=== PATIENT | male | born 1955 | race Hispanic/Latino ===

== ENCOUNTER 2022-03-20 15:13 | Outpatient (CLI) | payer MEDICARE, MEDICAID ==
[2022-03-20 17:35] LABS: Hemoglobin 8.3 g/dL (13.5-17.5); Mean Corpuscular Hemoglobin 28.8 pg (27.0-33.0); Mean Corpuscular Volume 89.9 fl (81.2-95.1); Mean Platelet Volume 9.9 fl (7.4-10.4); Platelet Count 404 10x3/uL (150-450); RBC Distribution Width 16.2 % (11.5-14.5); Red Blood Cell (RBC) Count 2.88 10x6/uL (4.32-5.72); White Blood Cell (WBC) Count 27.7 10x3/uL (3.5-10.5)
[2022-03-20 17:42] LABS: Anion Gap 16 mmol/L (10-20); BUN (Urea Nitrogen) 14 mg/dL (8.4-25.7); Calc. Creatinine Clearance 0 mL/min (70-130); Carbon Dioxide 26 mmol/L (23-31); Chloride 97 mmol/L (98-107); Estimated GFR 103; Glucose 193 mg/dL (80-115); Sodium 135 mmol/L (136-145)
[2022-03-20 18:05] LABS: Calcium 13.4 mg/dL (7.8-10.44)
== END 2022-03-20 15:14 | disposition home or self-care (01) ==
LOC: CSHLAB 15:13
PROVIDERS: ATTEND Surgery
DX: Z01.812 Encounter for preprocedural laboratory examination (principal); Z20.822 Contact with and (suspected) exposure to COVID-19; C16.9 Malignant neoplasm of stomach, unspecified
CPT/HCPCS: 80048; 85027; 87811

== ENCOUNTER 2022-03-21 19:14 | Inpatient (IN) | payer MEDICARE, MEDICAID ==
[2022-03-21 19:52] LABS: Hemoglobin 8.1 g/dL (13.5-17.5); Mean Corpuscular HGB CONC 30.9 g/dL (32.0-36.0); Mean Corpuscular Volume 90.7 fl (81.2-95.1); Mean Platelet Volume 9.4 fl (7.4-10.4); Platelet Count 389 10x3/uL (150-450); RBC Distribution Width 15.9 % (11.5-14.5); Red Blood Cell (RBC) Count 2.89 10x6/uL (4.32-5.72); White Blood Cell (WBC) Count 24.7 10x3/uL (3.5-10.5)
[2022-03-21 19:53] LABS: MDiff Complete? YES
[2022-03-21 19:58] LABS: ALT (SGPT) 13 U/L (8-55); AST (SGOT) 22 U/L (5-34); Albumin 3.2 g/dL (3.4-4.8); Alkaline Phosphatase 84 U/L (40-110); Anion Gap 11 mmol/L (10-20); BUN (Urea Nitrogen) 20 mg/dL (8.4-25.7); Bilirubin, Total 0.5 mg/dL (0.2-1.2); Calc. Creatinine Clearance 0 mL/min (70-130); Carbon Dioxide 28 mmol/L (23-31); Chloride 96 mmol/L (98-107); Estimated GFR 102; Globulin 3.3 g/dL (2.4-3.5); Glucose 219 mg/dL (80-115); Potassium 4.4 mmol/L (3.5-5.1); Protein, Total 6.5 g/dL (5.8-8.1); Sodium 131 mmol/L (136-145)
[2022-03-21 20:01] LABS: Calcium 13.8 mg/dL (7.8-10.44)
[2022-03-21] MEDS ORDERED: Piperacillin/Tazobactam 3.375 GM VIAL ONE (20:09)
[2022-03-21 20:17] LABS: Band 5 % (5-11); Eosinophils 1 % (0-10); Lymphocytes 14 % (21-51); Monocytes 7 % (0-10); Neutrophil 73 % (42-75)
[2022-03-21 20:17] LABS: Bilirubin Neg (Negative); Blood, Urine Negative (Negative); Clarity Clear (Clear); Glucose, Urine (Dipstick) Normal (Negative); Ketone, Urine 15 mg/dL (Negative); Leukocyte Negative (Negative); Nitrite Negative (Negative); Protein, Urine (Dipstick) Negative (Neg-Trace); Specific Gravity, Urine 1.025 (1.002-1.036); Urobilinogen Normal mg/dL (Less than 2)
[2022-03-21 20:18] LABS: Anisocytosis SLIGHT = 6-15 cells (100X) (0-5/hpf); Platelet Morphology Comment Appears Adequate
[2022-03-21 20:56] LABS: SARS-CoV-2 NAA Rapid Test Not Detected (NotDetected)
[2022-03-21] MEDS ORDERED: Dextrose 5% in Water 1,000 ML IV PRN (21:03)
[2022-03-21] MEDS ORDERED: Senokot S 8.6-50 MG TAB PO PRN (21:03)
[2022-03-21] MEDS ORDERED: HumaLOG 300 UNITS/3 ML VIAL SC PRN (21:03)
[2022-03-21] MEDS ORDERED: Acetaminophen 325 MG TAB PO PRN (21:03)
[2022-03-21] MEDS ORDERED: Ondansetron PF 4 MG/2 ML Vial IVP PRN (21:03)
[2022-03-21] MEDS ORDERED: Dextrose 50% Abboject 50 ML SYRINGE SLOW IVP PRN (21:03)
[2022-03-21] MEDS ORDERED: Guaifenesin DM 100-10/5 ML UDCUP PO PRN (21:03)
[2022-03-21] MEDS ORDERED: HYDROcodone/Acetaminophen 5/325 mg Tablet PO PRN (21:03)
[2022-03-21] MEDS ORDERED: Calcium Carbonate 500 MG ChewTAB PO PRN (21:03)
[2022-03-21] MEDS ORDERED: Pantoprazole 40 MG VIAL IVP SCH (21:15)
[2022-03-21] MEDS ORDERED: Lactated Ringer's 500 ML IV SCH (21:15)
[2022-03-21] MEDS ORDERED: Zoledronic Acid 4 MG in Sodium Chloride 0.9% 100 ML IVPB SCH (22:15)
[2022-03-21] MEDS ORDERED: Calcitonin,Synthetic 200 UNITS/ML MDV SC SCH (23:00)
[2022-03-22] MEDS: Lactated Ringer's 1,000 ML IV SCH ×2 (00:41→04:32)
[2022-03-22] MEDS ORDERED: HYDROcodone/Acetaminophen 5/325 mg Tablet ONE (02:40)
[2022-03-22] MEDS ORDERED: Metoprolol Tartrate 25 MG TAB ONE (04:30)
[2022-03-22 05:26] LABS: INR-International Normal Ratio 1.1; PTT 24.7 sec (22.0-33.0); Prothrombin Time 11.5 sec (9.5-12.1)
[2022-03-22 05:31] LABS: MDiff Complete? YES
[2022-03-22 05:36] LABS: Anion Gap 13 mmol/L (10-20); BUN (Urea Nitrogen) 13 mg/dL (8.4-25.7); Calc. Creatinine Clearance 0 mL/min (70-130); Calcium 10.6 mg/dL (7.8-10.44); Carbon Dioxide 24 mmol/L (23-31); Chloride 101 mmol/L (98-107); Estimated GFR 109; Glucose 230 mg/dL (80-115); Potassium 3.6 mmol/L (3.5-5.1); Sodium 134 mmol/L (136-145)
[2022-03-22] MEDS ORDERED: Lactated Ringer's 1,000 ML IV SCH (05:38)
[2022-03-22 05:44] LABS: Hemoglobin 6.5 g/dL (13.5-17.5); Mean Corpuscular HGB CONC 31.6 g/dL (32.0-36.0); Mean Corpuscular Hemoglobin 28.5 pg (27.0-33.0); Mean Corpuscular Volume 90.4 fl (81.2-95.1); Mean Platelet Volume 9.3 fl (7.4-10.4); Platelet Count 316 10x3/uL (150-450); RBC Distribution Width 15.9 % (11.5-14.5); Red Blood Cell (RBC) Count 2.28 10x6/uL (4.32-5.72); White Blood Cell (WBC) Count 22.2 10x3/uL (3.5-10.5)
[2022-03-22 06:21] LABS: Band 1 % (5-11); Lymphocytes 5 % (21-51); Monocytes 8 % (0-10); Neutrophil 86 % (42-75)
[2022-03-22 06:22] LABS: Platelet Morphology Comment Appears Adequate
[2022-03-22 06:23] LABS: RBC Morphology Normal
[2022-03-22] MEDS ORDERED: PROPOFOL 20 ML ONE (06:36)
[2022-03-22] MEDS ORDERED: Fentanyl 100 MCG/2 ML VIAL ONE (06:36)
[2022-03-22] MEDS ORDERED: CEFAZOLIN 2 GM VIAL ONE (07:26)
[2022-03-22] MEDS ORDERED: PHENYLEPHRINE-NS 100 MCG/ML 10 ML SYRINGE ONE ×2 (07:45→08:00)
[2022-03-22] MEDS ORDERED: Ondansetron PF 4 MG/2 ML Vial ONE (07:58)
[2022-03-22] MEDS ORDERED: HYDROcodone/Acetaminophen 5/325 mg Tablet PO PRN ×2 (08:17)
[2022-03-22] MEDS ORDERED: Pantoprazole 40 MG VIAL IVP SCH (09:00)
[2022-03-22] MEDS ORDERED: Metoprolol Tartrate 25 MG TAB PO SCH (09:00)
[2022-03-22] MEDS ORDERED: Cefepime 1 GM in Sodium Chloride 0.9% 100 ML IVPB SCH (09:00)
[2022-03-22 09:30] LABS: Hemoglobin 6.7 g/dL (13.5-17.5)
[2022-03-22 09:58] LABS: Anion Gap 12 mmol/L (10-20); BUN (Urea Nitrogen) 11 mg/dL (8.4-25.7); Calc. Creatinine Clearance 0 mL/min (70-130); Calcium 10.1 mg/dL (7.8-10.44); Carbon Dioxide 25 mmol/L (23-31); Chloride 102 mmol/L (98-107); Estimated GFR 109; Glucose 222 mg/dL (80-115); Potassium 3.6 mmol/L (3.5-5.1); Sodium 135 mmol/L (136-145)
[2022-03-22] MEDS ORDERED: Latanoprost 0.005% Ophth Soln 2.5 ml Bottle EA EYE SCH (21:00)
== END 2022-03-22 10:40 | disposition home or self-care (01) | DRG 357 ==
LOC: CSHERS 19:14 → CSHERHOLD 21:01
PROVIDERS: ADMIT Student in an Organized Health Care Education/Training Program; ATTEND Physician Assistant Medical
PROC: 0JH60WZ Insertion of Totally Implantable Vascular Access Device into Chest Subcutaneous Tissue and Fascia, Open Approach (ICD-10-PCS; principal; 2022-03-22)
PROC: 02HV33Z Insertion of Infusion Device into Superior Vena Cava, Percutaneous Approach (ICD-10-PCS; 2022-03-22)
PROC: B5181ZA Fluoroscopy of Superior Vena Cava using Low Osmolar Contrast, Guidance (ICD-10-PCS; 2022-03-22)
PROC: 0JH63XZ Insertion of Tunneled Vascular Access Device into Chest Subcutaneous Tissue and Fascia, Percutaneous Approach (ICD-10-PCS; 2022-03-22)
DX: C16.9 Malignant neoplasm of stomach, unspecified (principal); R65.10 Systemic inflammatory response syndrome (SIRS) of non-infectious origin without acute organ dysfunction; E83.52 Hypercalcemia; E78.5 Hyperlipidemia, unspecified; I10 Essential (primary) hypertension; E11.9 Type 2 diabetes mellitus without complications; I48.0 Paroxysmal atrial fibrillation; Z96.653 Presence of artificial knee joint, bilateral; D50.0 Iron deficiency anemia secondary to blood loss (chronic); E11.65 Type 2 diabetes mellitus with hyperglycemia; Z20.822 Contact with and (suspected) exposure to COVID-19; I48.91 Unspecified atrial fibrillation; E86.0 Dehydration; Z79.01 Long term (current) use of anticoagulants; Z79.4 Long term (current) use of insulin; Z98.890 Other specified postprocedural states; Z79.899 Other long term (current) drug therapy
CPT/HCPCS: 36415; 36416; 71045; 80048; 81003; 82306; 83605; 83970; 85025; 85610; 85730; 86850; 86900; 86901; 87040; 87086; C1788; C9113; J0630; J0690; J2405; J2543; J2704; J3010; J3370; J3489; J3490; J7120; U0002